=== PATIENT | female | born 2000 | race African-American/Black ===

== ENCOUNTER → 2018-04-24 | Outpatient (CLI) | payer OTHER ==
--- NOTE | 2018-04-25 07:21 | US ---
EXAMINATION TYPE: Transabdominal DATE OF EXAM: 08/09/17 COMPARISON: NONE CLINICAL HISTORY: O26.841 OB DATES. EXAM PERFORMED: Transabdominal (TA) EXAM MEASUREMENTS: GESTATIONAL AGE / DATING Physician Established: Not yet established Dates by LMP: LMP unknown Dates by First Scan: No previous this is first scan Dates by Current Scan for: (8 weeks/1 days) EDC: 12/03/2018 MATERNAL ANATOMY Uterus: 10.1 x 6.6 x 7.2 cm Right Ovary: 2.1 x 1.4 x 1.8 cm Left Ovary: 2.2 x 1.3 x 1.3 cm Post CDS / Adnexa: wnl Presence of free fluid: No Presence of corpus luteal cyst: No Presence of subchorionic bleed: No GESTATION / SURVEY CRL: 1.7 cm (8 weeks/1 days) Yolk Sac (normal less than 6mm): 2 mm Heart Rate: 163 bpm Rhythm: Normal IUP: Live IUP Date of LMP: Unsure Beta HcG (if available): Not available at this time Live IUP with an BRONSON 12/03/2018 by this exam IMPRESSION: Single live intrauterine with a sonographic age of 8 weeks and 1 day and estimated date of delivery of 12/03/2018.
== END | disposition home or self-care (01) ==
LOC: RADUSWWP 16:20
PROVIDERS: ATTEND Family Medicine
DX: O26.841 Uterine size-date discrepancy, first trimester (principal); Z3A.01 Less than 8 weeks gestation of pregnancy
CPT/HCPCS: 76801

== ENCOUNTER → 2018-05-04 | Outpatient (CLI) | payer OTHER ==
--- NOTE | 2018-05-04 16:40 | US ---
EXAMINATION TYPE: US thyroid st tissue head/neck DATE OF EXAM: 05/04/2018 COMPARISON: NONE CLINICAL HISTORY: E04.9 Nontoxic Goiter. Neck swelling GLAND SIZE: Right Lobe: 4.7 x 1.3 x 1.4 cm Overall Parenchyma: homogenous Left Lobe: 4.3 x 1.0 x 1.2 cm Overall Parenchyma: homogeneous Isthmus Thickness: 0.3 cm NODULES RIGHT: # of nodules measured on right: 0 LEFT: # of nodules measured on left: 0 ISTHMUS: # of nodules measured in the isthmus: 0 Bilateral neck scanned, no evidence of lymphadenopathy. IMPRESSION: No suspicious thyroid nodules.
== END | disposition home or self-care (01) ==
LOC: RADUSWWP 15:58
PROVIDERS: ATTEND Obstetrics & Gynecology
DX: E04.9 Nontoxic goiter, unspecified (principal)
CPT/HCPCS: 76536

== ENCOUNTER → 2018-08-11 | Outpatient (CLI) | payer OTHER ==
--- NOTE | 2018-08-13 18:12 | US ---
EXAMINATION TYPE: US OB anatomy transabd DATE OF EXAM: 08/11/2018 COMPARISON: HISTORY: Z34.80 Supervison of normal Anatomy per scan TECHNIQUE: Transabdominal (TA) EXAM MEASUREMENTS: GESTATIONAL AGE / DATING Physician Established: (23 weeks/5 days) EDC: 12/03/2018 Dates by Current Scan for: (23 weeks/1 days) EDC: 12/07/2018 SURVEY IUP: Single PLACENTA: Anterior PREVIA: No previa EMERALD: 24.1 cm Polyhydramnios CERVICAL LENGTH (transabdominal: norm > 3.0cm): 3.6 cm BIOMETRY PRESENTATION: Vertex BPD: 5.7 cm 23 weeks / 2 days HC: 21.4 cm 23 weeks / 3 days AC: 18.6 cm 23 weeks / 3 days FL: 4.2 cm 23 weeks / 4 days ESTIMATED WEIGHT IN GRAMS: 594.2 grams ESTIMATED WEIGHT IN LBS/OZ: 1 lbs. 5 oz. WEIGHT PERCENTAGE BASED ON ESTABLISHED DATE: 28.9 % HC/AC: 1.2 Normal FL/AC: 22.4 Normal HEART RATE: 157 bpm RHYTHM: Normal ANATOMY SEEN (within normal limits): * Lateral Vent (< 1 cm) 0.5 cm * Cisterna Magna (< 1.1 cm) 0.2 cm * Cerebellum (varies with age) 2.6 cm Choroid Plexus (bilateral) Midline Falx Cavus Septi Pellucidi Four Chamber Heart Outflow tracts: LVOT/RVOT Stomach Situs Nose / Lips Diaphragm Kidneys (bilateral) Bladder Cord Insert Three Vessel Cord Longitudinal Spine Transverse Spine Arms (bilateral) Legs (bilateral) Hands Feet ANATOMY NOT SEEN: * Nuchal Fold not visualized due to gestational age Single live IUP measuring 23 weeks 1 day. Placental lakes visualized. Debris seen within amniotic f luid. Polyhydramnios. IMPRESSION: 1. Single intrauterine gestation estimated at 23 weeks 1 day gestation based on current ultrasound me asurements. Cardiac activity measures 157 bpm. 2. Nuchal fold not visualized due to gestational age. 3. Placental lakes
== END | disposition home or self-care (01) ==
LOC: RADUSWWP 15:56
PROVIDERS: ATTEND Obstetrics & Gynecology
DX: Z34.82 Encounter for supervision of other normal pregnancy, second trimester (principal)
CPT/HCPCS: 76811

== ENCOUNTER → 2018-11-22 | Outpatient (CLI) | payer OTHER ==
--- NOTE | 2018-11-23 07:34 | US ---
EXAMINATION TYPE: US OB >= 14 wk fetus DATE OF EXAM: 11/22/2018 COMPARISON: Second trimester ultrasound August 11, 2018 CLINICAL HISTORY: Z34.90 SUPERVISION OF NORMAL Supervision of normal TECHNIQUE: Transabdominal (TA) GESTATIONAL AGE / DATING Physician Established: (38 weeks/3 days) EDC: 12/03/18 Dates by LMP: LMP unknown Dates by First Scan: (37 weeks/6 days) EDC: 12/07/18 Dates by Current Scan: (38 weeks/0 days) EDC: 12/06/18 SURVEY IUP: Single PLACENTA: Anterior PREVIA: No Previa EMERALD: 10.6 cm Normal CERVICAL LENGTH (transabdominal: norm > 3.0cm): 3.5 cm BIOMETRY PRESENTATION: Vertex LIE: Longitudinal BPD: 8.9 cm 36 weeks / 0 days HC: 34.1 cm 39 weeks / 2 days AC: 34.9 cm 38 weeks / 5 days FL: 7.5 cm 38 weeks / 3 days ESTIMATED WEIGHT IN GRAMS: 3481 grams ESTIMATED WEIGHT IN LBS/OZ: 7 lbs. 11 oz. WEIGHT PERCENTAGE BASED ON ESTABLISHED DATES: 64.6% HC/AC: 0.98 Normal FL/AC: 21.56 Normal HEART RATE: 150 bpm RHYTHM: Normal Single live intrauterine gestation is redemonstrated. Normal cephalad presentation is again seen. No ultrasound evidence for placenta previa. Amniotic fluid index is calculated within normal limits. No cervical thinning. biometry measurements are concordant and felt within normal limits. IMPRESSION: As above.
== END | disposition home or self-care (01) ==
LOC: RADUSMAIN 15:53
PROVIDERS: ATTEND Obstetrics & Gynecology
DX: Z34.93 Encounter for supervision of normal pregnancy, unspecified, third trimester (principal)
CPT/HCPCS: 76805

== ENCOUNTER 2019-02-06 03:29 | Emergency (ER) | payer OTHER ==
[2019-02-06 03:46] VITALS: BP 129/76; PULSE 82; RESP 16; TEMP 98.2
== END 2019-02-06 04:16 ==
LOC: EC 03:29
DX: Z02.89 Encounter for other administrative examinations (principal)

== ENCOUNTER 2019-04-02 19:53 | Emergency (ER) | payer OTHER ==
[2019-04-02 20:00] VITALS: BP 121/76; PULSE 95; RESP 20; TEMP 98.1
[2019-04-02] MEDS ORDERED: ACETAMINOPHEN TAB 325 MG TAB PO STA (20:14)
--- NOTE | 2019-04-02 20:54 | XR ---
EXAMINATION TYPE: XR lumbar spine 2 or 3V DATE OF EXAM: 04/02/2019 COMPARISON: NONE HISTORY: Back pain TECHNIQUE: 3 views FINDINGS: There is a slight levoscoliosis. Disc spaces are normal. Posterior elements are intact. The re is no compression fracture. IMPRESSION: Slight levoscoliosis. No fracture seen.
--- NOTE | 2019-04-02 20:54 | XR ---
EXAMINATION TYPE: XR thoracic spine complete DATE OF EXAM: 04/02/2019 COMPARISON: NONE HISTORY: Back pain TECHNIQUE: 3 views FINDINGS: There is a slight thoracolumbar levoscoliosis. Posterior elements are intact. There is no t horacic paraspinal mass. There is no compression fracture. Disc spaces appear normal. IMPRESSION: Negative exam. No fracture seen.
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
[2019-04-02] MEDS ORDERED: CYCLOBENZAPRINE 10MG STARTER 3 TAB BTL PO STA (21:35)
[2019-04-02] MEDS ORDERED: IBUPROFEN 600 MG STARTER PACK 4 TAB BTL PO STA (21:35)
== END 2019-04-02 21:48 | disposition home or self-care (01) ==
LOC: EC 19:53
DX: S33.5XXA Sprain of ligaments of lumbar spine, initial encounter (principal); S29.012A Strain of muscle and tendon of back wall of thorax, initial encounter; M41.85 Other forms of scoliosis, thoracolumbar region; F90.9 Attention-deficit hyperactivity disorder, unspecified type; F17.200 Nicotine dependence, unspecified, uncomplicated; Z79.899 Other long term (current) drug therapy; V49.59XA Passenger injured in collision with other motor vehicles in traffic accident, initial encounter; Y93.89 Activity, other specified; Y92.410 Unspecified street and highway as the place of occurrence of the external cause
CPT/HCPCS: 72072; 72100; 99284

== ENCOUNTER → 2019-06-05 | Outpatient (CLI) | payer OTHER ==
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
== END | disposition home or self-care (01) ==
LOC: RADMRIMAIN 14:56
PROVIDERS: ATTEND Family Medicine
DX: M54.41 Lumbago with sciatica, right side (principal); R20.2 Paresthesia of skin
CPT/HCPCS: 72148

== ENCOUNTER 2019-06-27 22:34 | Emergency (ER) | payer OTHER ==
--- NOTE | 2019-06-27 23:48 | XR ---
EXAMINATION TYPE: XR chest 2V DATE OF EXAM: 06/27/2019 COMPARISON: NONE HISTORY: Cough TECHNIQUE: 2 views FINDINGS: Heart and mediastinum are normal. Lungs are clear. Diaphragm is normal. Bony thorax appears normal. IMPRESSION: Normal chest.
--- NOTE | 2019-06-28 00:07 | ED ---
Fever HPI - General Chief Complaint: Fever Stated Complaint: Flu Symptoms Time Seen by Provider: 06/27/19 23:54 Source: patient Mode of arrival: ambulatory Limitations: no limitations - History of Present Illness Initial Comments: Patient is a 18-year-old female presenting to the emergency room with a chief complaint of cough congestion and fever. Symptoms started about 2 days ago. Patient has been exposed to other people positive for influenza. Does report a productive cough with yellow sputum production. Patient is a smoker but no history of asthma. Denies any wheezing or labored breathing. Denies any nausea vomiting diarrhea. Denies any shortness of breath chest pain or back pain. Does report sinus congestion, but denies otalgia or sore throat. - Related Data Home Medications Medication Instructions Recorded Confirmed Methylphenidate HCl [Concerta] 1 tab PO DAILY 04/01/15 04/01/15 Previous Rx's Medication Instructions Recorded Cephalexin [Keflex] 500 mg PO Q8HR #30 cap 04/01/15 Oseltamivir [Tamiflu] 75 mg PO Q12HR #10 cap 06/28/19 Allergies Allergy/AdvReac Type Severity Reaction Status Date / Time No Known Allergies Allergy Verified 06/27/19 23:12 Review of Systems ROS Statement: Those systems with pertinent positive or pertinent negative responses have been documented in the HPI. ROS Other: All systems not noted in ROS Statement are negative. Past Medical History Past Medical History: No Reported History History of Any Multi-Drug Resistant Organisms: None Reported Past Surgical History: No Surgical Hx Reported Past Psychological History: ADD/ADHD Smoking Status: Current every day smoker Past Alcohol Use History: Occasional Past Drug Use History: Marijuana General Exam Limitations: no limitations General appearance: alert, in no apparent distress Head exam: Present: atraumatic, normocephalic, normal inspection Eye exam: Present: normal appearance Pupils: Present: normal accommodation ENT exam: Present: normal exam, normal oropharynx, mucous membranes moist, TM's normal bilaterally, normal external ear exam Neck exam: Present: normal inspection, full ROM Respiratory exam: Present: normal lung sounds bilaterally. Absent: respiratory distress, wheezes, rales Cardiovascular Exam: Present: regular rate, normal rhythm, normal heart sounds Extremities exam: Present: normal inspection, full ROM Back exam: Present: normal inspection, full ROM Neurological exam: Present: alert, oriented X3 Psychiatric exam: Present: normal affect, normal mood Skin exam: Present: warm, dry, intact, normal color Course Vital Signs 06/27/19 06/28/19 23:07 00:35 Temperature 99.6 F 99.1 F Pulse Rate 122 H 92 Respiratory 24 22 Rate Blood Pressure 115/80 102/56 O2 Sat by Pulse 97 97 Oximetry Medical Decision Making - Medical Decision Making Patient is a 18-year-old female presenting to the emergency department with a chief complaint of cough congestion and fever. On examination patient is not in any respiratory distress. She does have some clear bilateral rhinorrhea. The rest of physical examination is unremarkable. Chest x-ray is unremarkable. Patient is positive for influenza. Patient will be started on Tamiflu. She has been exposed to people positive for influenza. Patient advised to alternate between Tylenol Motrin for fever control.I counseled the patient for smoking cessation for greater than 3 minutes. Return parameters were thoroughly discussed with patient is understanding and agreeable. She was advised to follow with primary care. Case discussed with physician. - Lab Data Lab Results 06/27/19 Range/Units 23:10 Influenza Type A RNA Detected H (Not Detectd) Influenza Type B (PCR) Not Detected (Not Detectd) Disposition Clinical Impression: Influenza, Cough Disposition: HOME SELF-CARE Condition: Stable Instructions (If sedation given, give patient instructions): Influenza (DC) Additional Instructions: Take prescribed medication as directed. Alternate between Tylenol or Motrin for fever control. Please stop smoking. Prescriptions: Oseltamivir [Tamiflu] 75 mg PO Q12HR #10 cap Is patient prescribed a controlled substance at d/c from ED?: No Referrals: Sol Andrade MD [Primary Care Provider] - 1-2 days Time of Disposition: 00:07
[2019-06-28 00:52] VITALS: BP 102/56; PULSE 92; RESP 22; TEMP 99.1
== END 2019-06-28 00:35 | disposition home or self-care (01) ==
LOC: EC 22:34
DX: J11.1 Influenza due to unidentified influenza virus with other respiratory manifestations (principal); Z71.6 Tobacco abuse counseling; F90.9 Attention-deficit hyperactivity disorder, unspecified type; F17.200 Nicotine dependence, unspecified, uncomplicated; Z79.899 Other long term (current) drug therapy; Z20.89 Contact with and (suspected) exposure to other communicable diseases
CPT/HCPCS: 71046; 87502; 99283; 99406

== ENCOUNTER 2020-03-27 10:11 | Emergency (ER) | payer OTHER ==
--- NOTE | 2020-03-27 10:25 | ED ---
General Adult HPI - General Chief complaint: Recheck/Abnormal Lab/Rx Stated complaint: COVID Test Source: patient Mode of arrival: ambulatory Limitations: no limitations - History of Present Illness Initial comments: 19-year-old female previously healthy presents emergency departments requesting a Covid test. Patient arrives with her daughter who had a high fever last night with nasal congestion and cough. Patient's daughter is being tested for Covid and therefore the patient wanted to be tested as well. She denies any fevers and herself. No chest pain or shortness of breath. No nausea, vomiting or diarrhea. No concern for current . No other alleviating, precipitating or modifying factors - Related Data Home Medications Medication Instructions Recorded Confirmed No Known Home Medications 03/27/20 03/27/20 Allergies Allergy/AdvReac Type Severity Reaction Status Date / Time No Known Allergies Allergy Verified 03/27/20 10:37 Review of Systems ROS Statement: Those systems with pertinent positive or pertinent negative responses have been documented in the HPI. ROS Other: All systems not noted in ROS Statement are negative. Past Medical History Past Medical History: No Reported History History of Any Multi-Drug Resistant Organisms: None Reported Past Surgical History: No Surgical Hx Reported Past Psychological History: ADD/ADHD Past Alcohol Use History: Occasional Past Drug Use History: Marijuana General Exam Limitations: no limitations General appearance: alert, in no apparent distress Head exam: Present: atraumatic, normocephalic, normal inspection Eye exam: Present: normal appearance, PERRL, EOMI. Absent: scleral icterus, conjunctival injection, periorbital swelling ENT exam: Present: normal exam, mucous membranes moist Neck exam: Present: normal inspection. Absent: tenderness, meningismus, lymphadenopathy Respiratory exam: Present: normal lung sounds bilaterally. Absent: respiratory distress, wheezes, rales, rhonchi, stridor Cardiovascular Exam: Present: regular rate, normal rhythm, normal heart sounds. Absent: systolic murmur, diastolic murmur, rubs, gallop, clicks GI/Abdominal exam: Present: soft, normal bowel sounds. Absent: distended, tenderness, guarding, rebound, rigid Extremities exam: Present: normal inspection, full ROM, normal capillary refill. Absent: tenderness, pedal edema, joint swelling, calf tenderness Back exam: Present: normal inspection Neurological exam: Present: alert, oriented X3, CN II-XII intact Psychiatric exam: Present: normal affect, normal mood Skin exam: Present: warm, dry, intact, normal color. Absent: rash Medical Decision Making - Medical Decision Making Upon arrival patient is placed into room 8. Patient is swabbed for Covid testing. Vitals are stable. Patient will be discharged home and instructed to quarantine. She will be called with any positive results. If she has any new or worsening symptoms she should return to the emergency room. Patient was then discharged home in stable condition Disposition Clinical Impression: Cough Disposition: HOME SELF-CARE Condition: Stable Additional Instructions: We recommend that you quarantine until the results come back. Follow-up with your primary care doctor. Return to emergency room for any new or worsening symptoms Is patient prescribed a controlled substance at d/c from ED?: No Referrals: Sol Andrade MD [Primary Care Provider] - 1-2 days Time of Disposition: 10:47
== END 2020-03-27 11:16 | disposition home or self-care (01) ==
LOC: EC 10:11
DX: Z03.818 Encounter for observation for suspected exposure to other biological agents ruled out (principal); R05 Cough; Z20.828 Contact with and (suspected) exposure to other viral communicable diseases
CPT/HCPCS: 99283; U0003

== ENCOUNTER → 2020-08-12 | Outpatient (CLI) | payer OTHER ==
[2020-08-12 15:03] VITALS: BP 111/78; PULSE 96; RESP 16; TEMP 98.2
--- NOTE | 2020-08-12 16:16 | P.HPOB ---
History of Present Illness H&P Date: 08/12/20 Chief Complaint: The patient is here for her routine gynecologic exam and control This is a 19-year-old with an LMP of January 2020. She is status post vaginal delivery on 12/08/2019. She states she started a period in January and was started on Depo-Provera at that time for control. She had another shot of Depo-Provera in April and states she was due for her next Depo- Provera shot on 07/31/2020. She is here to establish with this office and would like to continue using Depo-Provera for control. She states she has not been having menstrual periods while on Depo-Provera. She is without gynecologic complaints. Review of Systems The patient's weight has been stable over the last year. She denies respiratory, cardiac, or G.I. problems. 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 History of Any Multi-Drug Resistant Organisms: None Reported Past Surgical History: No Surgical Hx Reported Past Psychological History: ADD/ADHD Smoking Status: Former smoker Past Alcohol Use History: Occasional (2 per month) Past Drug Use History: Marijuana (Daily) Additional History: She is single and has been with her boyfriend for 2 years and does live with him. 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 Medications and Allergies Home Medications Medication Instructions Recorded Confirmed Type Medroxyprogesterone Acetate 150 mg IM DAILY 08/12/20 08/12/20 History [Depo-Provera] Allergies Allergy/AdvReac Type Severity Reaction Status Date / Time No Known Allergies Allergy Verified 08/12/20 15:03 Exam Vital Signs Temp Pulse Resp BP Pulse Ox 08/12/20 14:59 98.2 F 96 16 111/78 98 Intake and Output 08/12/20 08/12/20 08/12/20 06:59 14:59 22:59 Other: Weight 53.07 kg Height 5 feet 6-1/2 inches, weight 117 pounds, BMI 18.6. This is a well-developed well-nourished black female who is alert and oriented times 3 in no acute distress. HEENT: Within normal limits. NECK: Supple without mass or thyromegaly. CHEST AND LUNGS: Clear to auscultation. HEART: Regular rate and rhythm. BREASTS: Are without mass or discharge. There are bilateral nipple piercings that are not inflamed. AXILLARY EXAM: Negative for adenopathy. BACK: Negative for CVA tenderness. ABDOMEN: Soft, nontender, without palpable masses. PELVIC EXAM: Normal external genitalia. Cervix and vagina appear normal. There is a small amount of creamy slightly yellow discharge without odor. There is no cervical motion tenderness. There is no evidence of prolapse. The uterus is midposition, nongravid size and nontender. There are no palpable adnexal masses or tenderness. RECTAL EXAM: Deferred. EXTREMITIES: Nontender. IMPRESSION: 1. 19-year-old female with amenorrhea secondary to Depo-Provera injections which is being used for control. 2. Slight creamy vaginal discharge. PLAN: 1. Pap smear was performed. 2. Self breast awareness was discussed with the patient. 3. We have had a long discussion regarding control options. I have recommended that she not use Depo-Provera for long-term control since Depo-Provera can cause significant weakening of the bones. We have discussed other options such as barrier methods, other hormonal methods such as control pills, control patch, the NuvaRing ring, and Nexplanon implant. We have also discussed IUD options and sterilization. She would like to continue on Depo-Provera at this time. She states she was due for her next Depo-Provera shot on 07/31/2020. Urine test will be sent today and if this is negative we will plan on giving her injection tomorrow. In electronic prescription will be sent to [facility] pharmacy on [address] [place] [address] for Depo-Provera 150 mg which will be given IM tomorrow. 4. A handout on osteoporosis prevention was given to the patient which discusses the importance of adequate calcium, vitamin D and regular exercise. Again I am encouraging her to pick a different method of control other than Depo-Provera in the future. 5. If she continues to use Depo-Provera for control, she will return tomorrow and every 3 months for injections. 6. Affirm vaginitis panel was obtained from the vagina. GC and Chlamydia testing was obtained from the cervix. 7. She will also return in one year for her well woman examination.
== END | disposition home or self-care (01) ==
LOC: WWCWWP 14:47
PROVIDERS: ATTEND Obstetrics & Gynecology
DX: N91.1 Secondary amenorrhea (principal); N89.8 Other specified noninflammatory disorders of vagina; Z87.891 Personal history of nicotine dependence

== ENCOUNTER → 2020-08-13 | Outpatient (CLI) | payer OTHER ==
[2020-08-13 10:34] VITALS: BP 118/82; PULSE 113; RESP 16; TEMP 98.4
--- NOTE | 2020-08-13 10:47 | P.PN ---
Progress Note - Text Progress Note Date: 08/13/20 The patient has returned for her Depo-Provera injection. Her last one was given late in April 2020. Her dose was due at the end of July. Urine hCG yesterday was negative. The patient states that after this injection today, she is interested in looking into the Mirena IUD for future control. I have encouraged her to change control since Depo-Provera could lead to significant bone loss with long-term use. Blood pressure 118/82, height 5 feet 6-1/2 inches, weight 117 pounds, temperature 97.9, pulse 113, pulse oximeter 98%. Medroxyprogesterone acetate 150 mg was given IM into the right deltoid muscle. Lot number [id number], expiration date 06/08/2024. Serial #[id number] The patient will get more information on the Mirena IUD at the [employer] website. After reviewing the information, if she desires to proceed with the Mirena IUD, she was instructed to call and I will make a referral to someone who inserts this. She is to do this in the next 3 months, or if she decides against that she will return in 3 months for the next Depo-Provera injection. She was instructed to call she has any questions.
--- NOTE | 2020-08-13 10:49 | P.PN ---
Progress Note - Text Progress Note Date: 08/13/20 OUTPATIENT FOLLOW-UP NOTE TEST(S)/RESULTS: Affirm testing done on 08/12/2020 was positive for Gardnerella and negative for Trichomonas and Annamarie. METHOD OF NOTIFICATION: The patient was notified in person at the time of her Depo-Provera injection appointment. PATIENT COMMENTS: The patient states she does notice a slight vaginal odor. DIAGNOSIS: Bacterial vaginosis DISCUSSION: She will be treated with metronidazole 500 mg by mouth twice a day 7 days. The electronic prescription will be sent to [facility] pharmacy on . She was instructed to avoid alcohol while taking the medication. PLAN: As above.
== END ==
LOC: WWCWWP 10:26
PROVIDERS: ATTEND Obstetrics & Gynecology
DX: N76.0 Acute vaginitis (principal)

== ENCOUNTER 2020-08-14 06:15 | Emergency (ER) | payer OTHER ==
[2020-08-14] MEDS ORDERED: IBUPROFEN 400 MG TAB PO STA (07:35)
[2020-08-14] MEDS ORDERED: ACETAMINOPHEN TAB 500 MG TAB PO STA (07:35)
[2020-08-14 07:47] VITALS: RESP 18
--- NOTE | 2020-08-14 07:54 | XR ---
EXAM: XR Chest, 2 Views CLINICAL HISTORY: Chest pain TECHNIQUE: Frontal and lateral views of the chest. COMPARISON: 06/27/19. FINDINGS: Lungs: Unremarkable. Lungs are well-inflated. No consolidation. No pulmonary edema. Pleural space: Unremarkable. No pneumothorax. No pleural effusions. Heart: Unremarkable. No cardiomegaly. Mediastinum: Unremarkable. No mediastinal widening or shift. Bones/joints: Unremarkable. IMPRESSION: Normal chest x-rays.
--- NOTE | 2020-08-14 08:06 | ED ---
Chest Pain HPI - General Chief Complaint: Chest Pain Stated Complaint: Chest pain Time Seen by Provider: 08/14/20 06:28 Source: EMS Mode of arrival: EMS Limitations: no limitations - History of Present Illness Initial Comments: 19-year-old female presents to the emergency department with a chief complaint of chest pain and sore throat. Patient states for the last 3 she is developed a sore throat and early this morning she went to the emergency department another hospital where she was tested for strep throat and came back negative. States he was discharged with viscous lidocaine. States she took it around 4 AM and went to sleep. States she woke up in the sore throat returned. Patient states she became very emotional and workup and now she is having some chest pressure without any shortness of breath. Patient states she believes she might have a panic attack. Patient does have history of strep. - Related Data Previous Rx's Medication Instructions Recorded Medroxyprogesterone Acetate 150 mg IM DIRECTED #1 syr 08/12/20 [Depo-Provera] metroNIDAZOLE [Flagyl] 500 mg PO BID 7 Days #14 tab 08/13/20 predniSONE [Deltasone] 20 mg PO DAILY #5 tab 08/14/20 Allergies Allergy/AdvReac Type Severity Reaction Status Date / Time No Known Allergies Allergy Verified 08/13/20 10:29 Review of Systems ROS Statement: Those systems with pertinent positive or pertinent negative responses have been documented in the HPI. ROS Other: All systems not noted in ROS Statement are negative. EKG Findings - EKG Comments: EKG Findings:: Sinus arrhythmia. Slight ST elevations in V3. 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 History of Any Multi-Drug Resistant Organisms: None Reported Past Surgical History: No Surgical Hx Reported Past Psychological History: ADD/ADHD Smoking Status: Former smoker Past Alcohol Use History: Occasional Past Drug Use History: Marijuana General Exam Limitations: no limitations General appearance: alert, in no apparent distress, anxious Head exam: Present: atraumatic, normocephalic, normal inspection Eye exam: Present: normal appearance, PERRL, EOMI Pupils: Present: normal accommodation ENT exam: Present: normal exam, normal oropharynx (Uvula midline. No tonsillar enlargement, erythema or exudates.), mucous membranes moist, TM's normal bilaterally, normal external ear exam Neck exam: Present: normal inspection, full ROM. Absent: tenderness, lymphadenopathy Respiratory exam: Present: normal lung sounds bilaterally. Absent: respiratory distress, wheezes, rales, rhonchi, stridor Cardiovascular Exam: Present: regular rate, normal rhythm, normal heart sounds. Absent: bradycardia, tachycardia, systolic murmur, diastolic murmur Extremities exam: Present: normal inspection, full ROM, normal capillary refill. Absent: tenderness, pedal edema, joint swelling Back exam: Present: normal inspection, full ROM. Absent: tenderness, CVA tenderness (R), CVA tenderness (L) Neurological exam: Present: alert, oriented X3, normal gait Psychiatric exam: Present: normal affect, normal mood Skin exam: Present: warm, dry, intact, normal color Course Vital Signs 08/14/20 08/14/20 06:18 07:42 Pulse Rate 69 99 Respiratory 16 18 Rate Blood Pressure 127/101 121/101 O2 Sat by Pulse 98 98 Oximetry Chest Pain MDM - MDM 19-year-old female presents to the emergency department with a chief complaint of sore throat and chest pain. On physical examination, no signs of strep pharyngitis. I suspect this is more a viral cause. I will prescribe her several days' worth of prednisone. Patient was anxious and evaluation. She was crying and emotional and states she wants her "tonsils out". On reevaluation, patient was more calm states the chest pressure has almost completely resolved. I do suspect this was secondary to acute anxiety. EKG showed ST elevation, m ild in V3. No previous EKG. Not reminiscent of her got is at this time. I discussed the case with also evaluated EKG and advised that no further workup is necessary. Chest x-ray is unremarkable. Cold but negative. Strict return parameters were thoroughly discussed the patient was understanding ago. Disposition Clinical Impression: Sore throat, Atypical chest pain, Acute anxiety Disposition: HOME SELF-CARE Condition: Stable Instructions (If sedation given, give patient instructions): Strep Throat (DC) Additional Instructions: Take prescribed medication as directed. Return to emergency department if symptoms worsen. Follow-up with primary care physician. Is patient prescribed a controlled substance at d/c from ED?: No Referrals: Sol Andrade MD [Primary Care Provider] - 1-2 days Time of Disposition: 08:05
[2020-08-14 08:31] VITALS: BP 124/106; PULSE 97
== END 2020-08-14 08:30 | disposition home or self-care (01) ==
LOC: EC 06:15
DX: J02.9 Acute pharyngitis, unspecified (principal); R07.89 Other chest pain; F41.9 Anxiety disorder, unspecified; F90.9 Attention-deficit hyperactivity disorder, unspecified type; F12.90 Cannabis use, unspecified, uncomplicated; Z20.822 Contact with and (suspected) exposure to COVID-19; Z87.891 Personal history of nicotine dependence
CPT/HCPCS: 71046; 87635; 93005; 99285